=== PATIENT | male | born 1930 | race Caucasian/White ===

== ENCOUNTER → 2016-11-12 | Outpatient (CLI) | payer OTHER, MEDICARE ==
[~2016-11-12] MED LIST: ACCUNEB SO1.25 MG/1; ALLER-EASE180 MG PO; ANTARA30 MG PO; ASPIR 8181 MG PO; CARDURA XL4 MG PO; COUMADIN 1MG TAB1 M1 PO; FLECAINIDE ACE100 MG PO; FLONASE 0.05%50 MCG NASAL; HYDROCHLOROTHIA25 M2 PO; IMIPRAMINE HCL25 MG PO; LIVALO2 MG PO; PLAVIX 75 MG TA75 M1 PO; PROSCAR 5MG TABL5 MG PO; QNASL8.7 GM NASAL; TESTIM5 GM TOP; TOPROL XL50 MG PO; VESICARE 5 MG TA5 MG PO
== END ==
LOC: RAD 11:03
DX: R06.00 Dyspnea, unspecified (principal)

== ENCOUNTER 2017-05-27 15:33 | Emergency (ER) | payer OTHER, MEDICARE ==
[~2017-05-27] VITALS: Ht 182.9 cm; Wt 95.3 kg
[2017-05-27 16:42] LABS: HEMATOCRIT 37.7 % (42.0-52.0); HEMOGLOBIN 13.1 gm/dL (14.0-18.0); MCH 32.9 pg (26.0-34.0); MCHC 34.7 g/dL (28.0-37.0); MCV 94.9 fL (80.0-100.0); PLATELET COUNT 237 thou/uL (150-400); RBC 3.97 mil/uL (4.50-6.00); RDW 13.8 % (10.5-14.5); WBC 12.1 thou/uL (4.0-11.0)
[2017-05-27 16:55] LABS: CALCIUM 8.9 mg/dL (8.5-10.1); CREATININE 1.3 mg/dL (0.7-1.3); POTASSIUM 4.2 mmol/L (3.5-5.1)
[2017-05-27 17:04] LABS: ABSOLUTE NEUTROPHILS 8.7 thou/uL (1.4-8.2)
[2017-05-27 17:22] LABS: URINE BILIRUBIN NEGATIVE (Negative); URINE BLOOD 1+ (Negative); URINE CLARITY CLEAR; URINE COLOR YELLOW; URINE GLUCOSE-RANDOM* NEGATIVE (Negative); URINE KETONES NEGATIVE (Negative); URINE LEUKOCYTES 1+ (Negative); URINE NITRITE NEGATIVE (Negative); URINE PROTEIN (DIPSTICK) NEGATIVE (Negative); URINE UROBILINOGEN 0.2 E.U./dl (0.2-1.0)
[2017-05-27 17:25] LABS: BACTERIA 1-9 Few /HPF (None Seen); CASTS None Seen /LPF (None Seen); SQUAMOUS None Seen /LPF (0-3); URINE RBC 3-10 Few /HPF (0-2); URINE WBC 6-15 Few /HPF (0-5)
[2017-05-27 17:26] LABS: CRYSTALS None Seen /LPF (None Seen)
[2017-05-27 17:52] VITALS: BP 136/74
[2017-05-27] MEDS ORDERED: ULTRAM 50MG TAB50 MG PO (18:12)
[2017-08-09] MEDS ORDERED: DEMADEX20 MG PO (14:24)
[2017-08-09] MEDS ORDERED: K-DUR 20 MEQ T20 MEQ PO (14:29)
[2017-08-09] MEDS ORDERED: IMIPRAMINE HCL25 MG PO (14:29)
[2017-08-09] MEDS ORDERED: MYRBETRIQ50 MG PO (14:30)
== END 2017-05-27 18:33 | disposition home or self-care (01) ==
LOC: ER 15:33
PROVIDERS: Nurse Practitioner
DX: S22.089A Unspecified fracture of T11-T12 vertebra, initial encounter for closed fracture (principal); I10 Essential (primary) hypertension; I48.91 Unspecified atrial fibrillation; E78.5 Hyperlipidemia, unspecified; I25.10 Atherosclerotic heart disease of native coronary artery without angina pectoris; N40.0 Benign prostatic hyperplasia without lower urinary tract symptoms; Z88.0 Allergy status to penicillin; W19.XXXA Unspecified fall, initial encounter; Y93.89 Activity, other specified; Y92.89 Other specified places as the place of occurrence of the external cause; Y99.8 Other external cause status

== ENCOUNTER 2017-05-29 11:39 | Inpatient (IN) | payer OTHER, MEDICARE ==
[~2017-05-29] VITALS: Ht 182.9 cm; Wt 131.1 kg
--- NOTE | ~2017-05-29 | EKG ---
[address] [place] [address] ELECTROCARDIOGRAM REPORT Name: KRISSMIGUELITOBHARATHI Marilin Room #: 402-P ADM IN M.R.#: [id number] Admission: 05/29/17 Attend Phys: Bud Wong Discharge: Date of : 34 Report #: [id number] THIS REPORT FOR: //name// [facility] Test Date: 2017-05-29 Test Time: 22:51:45 Pat Name: BHARATHI MOON Department: Room: 402 P Gender: M Salvationist: willard roy rn : 1930 Requested By: Rae Montes Order Number: [id number] MD: Alfonso Christianson Measurements Intervals [address] Rate: 70 P: -13 VT: 234 QRS: -13 QRSD: 103 T: 16 QT: 432 QTc: 467 Interpretive Statements Sinus rhythm Prolonged VT interval Compared to ECG 02/25/2014 15:26:06 First degree AV block now present Electronically Signed On 05-30-2017 10:12:43 RADIO TESTER by Alfonso Christianson [email or web address] <ELECTRONICALLY SIGNED> By: Alfonso Christianson MD 05/30/17 1012 D: [id number] Alfonso Christianson MD /PAPA
--- NOTE | ~2017-05-29 | 2DMMODE ---
[facility] [address] [place] [address] 2 D/M-MODE ECHOCARDIOGRAM Name: BHARATHI MOON Room #: 402-P ADM IN M.R.#: [id number] Admission: 05/29/17 Attend Phys: Bud Garland Discharge: Date of : 34 Date of Service: 05/31/17 1700 Report #: [id number] THIS REPORT FOR: //name// APPROVED REPORT Study performed: 05/31/2017 14:48:03 EXAM: Comprehensive 2D, Doppler, and color-flow Echocardiogram Patient Location: Bedside Room #: 402 Status: routine BSA: 2.45 HR: 75 bpm BP: 160/64 mmHg Rhythm: NSR Other Information Study Quality: Adequate/technically difficult due to obesity and heavy breathing Indications Edema. Hx: CAD, HTN, Afib 2D Dimensions RVDd: 33.33 mm LVEF(%): 65.45 (>50%) IVSd: 11.74 (7-11mm) LVOT Diam: 23.61 (18-24mm) LVDd: 52.57 mm PWd: 11.50 (7-11mm) Ascending Ao: 40.71 (22-36mm) LVDs: 33.53 (25-40mm) Aortic Root: 40.46 mm Sue's LVEF: 65.45 % Volumes Left Atrial Volume (Systole) Single Plane 4CH: 99.15 mL Single Plane 2CH: 99.47 mL LA ESV Index: 43.00 mL/m2 Aortic Valve AoV Peak Jakub.: 3.04 m/s AO Peak Gr.: 36.89 mmHg LVOT Max P.24 mmHg AO Mean Gr.: 19.68 mmHg AO V2 Mean: 2.10 m/s LVOT Max V: 1.52 m/s AO V2 VTI: 56.60 cm REJI Vmax: 2.19 cm2 AI Vmax: 5.06 m/s [facility] [employer] [place] [address] 2 D/M-MODE ECHOCARDIOGRAM Name: KRISSMIGUELITOBHARATHI Marilin Room #: 402-P [facility] IN ..#: [id number] Admission: 05/29/17 Attend Phys: Bud Garland Discharge: Date of : 34 Date of Service: 05/31/17 1700 Report #: [id number] AI Stewart: 3.16 m/s2 AI PHT: 464.62 ms Mitral Valve E/A Ratio: 0.8 MV Decel. Time: 291.23 ms MV E Max Jakub.: 0.76 m/s MV A Jakub.: 0.93 m/s MV PHT: 84.46 ms IVRT: 79.58 ms Pulmonary Valve PV Peak Jakub.: 1.61 m/s PV Peak Gr.: 10.42 mmHg Tricuspid Valve RAP Estimate: 5.00 mmHg Left Ventricle The left ventricle is normal size. There is normal LV segmental wall motion. Mild concentric left ventricular hypertrophy. Left ventricular systolic function is normal. LVEF is 60-65%%. Mild diastolic dysfunction is present (impaired relaxation pattern). Right Ventricle The right ventricle is normal size. Right ventricle appears mildly hypokinetic. Atria Left atrium is dilated. The right atrium size is normal. Aortic Valve Aortic valve is calcified, trileaflet. Moderate aortic regurgitation. Mild aortic stenosis. Calculated aortic valve area is 1.2 cm2 with maximum pressure gradient of 36 mmHg and mean pressure gradient of 19 mmHg. Mitral Valve The mitral valve is normal in structure. Trace mitral regurgitation. Tricuspid Valve The tricuspid valve is normal in structure. There is no tricuspid valve regurgitation noted. Unable to assess PA pressure. Pulmonic Valve [facility] [address] [place] [address] 2 D/M-MODE ECHOCARDIOGRAM Name: BHARATHI MOON Room #: 402-P [facility] IN [facility]#: [id number] Admission: 05/29/17 Attend Phys: Bud Garland Discharge: Date of : 32 Date of Service: 05/31/17 1700 Report #: [id number] The pulmonary valve is normal in structure. Mild pulmonic regurgitation. 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 Ascending aorta is dilated at 4.1cm. IVC is normal in size and collapses >50% with inspiration. Pericardium There is no pericardial effusion. <Conclusion> Left ventricular systolic function is normal. LVEF 60-65%%. Normal LV segmental wall motion. Mild diastolic dysfunction Left atrium is dilated. Aortic valve is calcified, trileaflet. Mild aortic stenosis. Moderate aortic regurgitation. Calculated aortic valve area is 1.2 cm2 with maximum pressure gradient of 36 mmHg and mean pressure gradient of 19 mmHg. The mitral valve is normal in structure. Trace mitral regurgitation. There is no pericardial effusion. <ELECTRONICALLY SIGNED> By: Heri Carter MD, FACC 05/31/171699 99 99 Heri Carter MD, FACC /INF
--- NOTE | ~2017-05-29 | HC ---
[facility] [place] [address] CONSULTATION Name: BHARATHI MOON Room #: 402-P ADM IN M.R.#: [id number] Admission: 05/29/17 Attend Phys: Bud Wong Discharge: Date of : 32 Report #: [id number] THIS REPORT FOR: //name// CC: Alfredo Wong DATE OF SERVICE: 05/29/2017 ATTENDING PHYSICIAN: Dr. Wong. REASON FOR CONSULTATION: Complicated urinary tract infection and probable pneumonitis. HISTORY OF PRESENT ILLNESS: Chart reviewed, the patient examined. This is an 87-year-old male with history of obstructive sleep apnea, known coronary artery disease who had abrupt onset of severe back pain, hip pain, radiated actually proximally, had persisted in spite of his various attempts to mitigate it with heat, hot showers, etc. He was evaluated and was found to have a T12 compression fracture and he was subsequently admitted. He was felt to be having some difficulty urinating. Urinalysis did show some moderate pyuria. Urine culture now with growth of Pseudomonas. In addition to that, chest x-ray shows patchy infiltrates and he is requiring supplemental oxygen. Despite that he has some increased respiratory rate, suggests some dyspnea as well. He is febrile. He is not encephalopathic. ALLERGIES: LISTED TO PENICILLINS. MEDICATIONS: Include metformin, glipizide, amiodarone, metoprolol, diltiazem, levofloxacin, rivaroxaban, hydrocodone, zolpidem, ondansetron. PAST MEDICAL HISTORY: As described above, history of hypertension, benign prostatic hypertrophy, hyperlipidemia, atrial fibrillation. SOCIAL HISTORY: Former smoker. No ethanol. FAMILY HISTORY: Noncontributory. REVIEW OF SYSTEMS: As above. PHYSICAL EXAMINATION: GENERAL: He is moderately uncomfortable, some respiratory distress. He has got nasal cannula oxygen in place. He is anxious. VITAL SIGNS: Temperature 98.4, pulse 80, respirations 23, blood pressure 148/57. SKIN: Warm, dry, no rashes. [facility] [address] [place] [address] CONSULTATION Name: BHARATHI MOON Room #: 402-P [facility] IN M.R.#: [id number] Admission: 05/29/17 Attend Phys: Bud Wong Discharge: Date of : 32 Report #: [id number] HEENT: Otherwise, unremarkable. NECK: Supple. LUNGS: Diminished breath sounds. Few scattered crackles. HEART: Does have a systolic murmur. ABDOMEN: Soft, obese, nontender. There are no peritoneal signs. I do not appreciate any flank tenderness. GENITOURINARY: Deferred. RECTAL: Deferred. LABORATORY DATA: CT abdomen and pelvis show moderate distention of the colon with stool felt to represent constipation, diverticulosis, possible early diverticulitis, retroperitoneal adenopathy, multiple gallstones. Chest x-ray: Mild bilateral interstitial opacities. Influenza antigen was not detected for A or B. BNP 733. Electrolytes: Sodium 138, potassium 4.3, chloride 96, bicarbonate 24, BUN and creatinine 30 and 1.2, total bilirubin of 1.5, total protein of 8.2, albumin 3.5, estimated GFR 58. CBC: White count of 12.4, H and H 13.4 and 39.1, platelets of 240. Urine culture described above, pseudomonas. CT L-spine showed compression fracture T12. ASSESSMENT AND PLAN: Complicated urinary tract infection as well as probable pneumonitis. Levofloxacin is reasonable, should give us perhaps pseudomonas coverage in the event that it is quinolone resistant. We will add a single dose of gentamicin, wait for results. He is in quite a bit of distress at this point. Symptomatic treatment. We will repeat labs in the morning. We will have to monitor expectantly. I think he is at risk for further nosocomial related complications. <ELECTRONICALLY SIGNED> By: Darnell Hall MD 05/30/17 0411 1811 1827 Darnell Hall MD /nt
--- NOTE | ~2017-05-29 | HC ---
[facility] [place] [address] CONSULTATION Name: HBARATHI MOON Room #: 402-P [facility] IN M.R.#: [id number] Admission: 05/29/17 Attend Phys: Bud Wong Discharge: 06/02/17 Date of : 32 Report #: [id number] THIS REPORT FOR: //name// CC: Alfredo Wong DATE OF SERVICE: 06/01/2017 HISTORY OF PRESENT ILLNESS: The patient is an 87-year-old white male admitted with severe back pain, lower extremity swelling, and decreased urination. He was diagnosed with a T12 compression fracture with CT scan, age indeterminate. His symptoms regarding the severe low back pain have improved. He was noted to have moderate pyuria, diagnosed with a complicated urinary tract infection. He also has pneumonia. Infectious Disease is closely involved and he has been on IV antibiotics. He has BPH without hydronephrosis, was started on Flomax with plans for a voiding trial in the next few days with Urology involved. He has been on 4 liters nasal cannula, which is all new for him. He has also had a noted delirium/metabolic encephalopathy with plan to avoid psychotropics and p.r.n. Ambien. He also has had some hyponatremia. We are seeing him now in rehabilitation medicine consultation. PAST MEDICAL HISTORY: Includes hypertension; atrial fibrillation; sleep apnea, on CPAP; BPH; hyperlipidemia; coronary artery disease. HABITS: Former tobacco abuse, quit greater than a year ago. No history of alcohol abuse. ALLERGIES: PENICILLIN. SOCIAL HISTORY: Lives in a house with his , one step, 10 inside, this is a ranch-style house. He did not utilize gait aids premorbidly. He was not on O2. He has several daughters that are involved. REVIEW OF SYSTEMS: No current complaints of chest pain, abdominal discomfort, or shortness of breath except with increased activity. He notes that severe low back pain is improved. He has concerns regarding his voiding. No extremity pain complaints with his distal upper or lower extremities. He does complain of generalized weakness. PHYSICAL EXAMINATION: GENERAL: An 87-year-old white male, no obvious distress. He is mildly hard of hearing. VITAL SIGNS: Temperature is 98.9, pulse 72, respirations 18, and blood pressure 138/68. He is on 4 liters nasal cannula. NEUROLOGIC: He is an overweight white gentleman. He does have a delay in his [address] [address] CONSULTATION Name: BHARATHI MOON Room #: 402-P [facility] IN M.R.#: [id number] Admission: 05/29/17 Attend Phys: Bud Wong Discharge: 06/02/17 Date of : 32 Report #: [id number] responses. Tends to defer answers to his daughter. Needed repetition with decreased attention. Facies are symmetric. Functional range of motion of both upper extremities. Strength is grade 3+ to 4-/5. DTRs are trace to 1. Lower extremities, 1+ distal lower extremity edema. No focal calf swelling. Functional range of motion with strength of grade 3+ to 4-/5. DTRs are trace to 1. He was a max assist with bed to chair and gait was max assist 30 feet front-wheeled walker. ASSESSMENT: An 87-year-old white male with the following problem list: 1. Delirium/multifactorial encephalopathy. 2. T12 compression fracture of undetermined duration with symptoms improving. 3. Pneumonia. 4. Complicated urinary tract infection. 5. Benign prostatic hypertrophy without hydronephrosis, on Flomax with Urology involved. 6. Coronary artery disease, status post drug-eluting stent and right carotid endarterectomy. 7. History of aortic stenosis. 8. Atrial fibrillation. 9. Hypertension. PLAN: Pulmonary is currently involved as well as Urology, Infectious Disease, and Internal Medicine. He does have the cognitive deficits that appear to be improving and has medical complexity with generalized debilitation. It would be my impression that he would be a good acute in-hospital inpatient rehabilitation candidate as he further medically stabilizes. At this point, we will continue to follow along with you regarding his rehab therapy needs. Discussion was held with the patient's daughter. <ELECTRONICALLY SIGNED> By: Manuel Thomas MD 06/29/17 1030 1209 07 Manuel Thomas MD /nt
--- NOTE | ~2017-05-29 | EKG ---
[address] [place] [address] ELECTROCARDIOGRAM REPORT Name: BHARATHI MOON Room #: 402-P ADM IN M.R.#: [id number] Admission: 05/29/17 Attend Phys: Bud Wong Discharge: Date of : 32 Report #: [id number] THIS REPORT FOR: //name// [facility] ED Test Date: 2017-05-29 Test Time: 12:25:51 Pat Name: BHARATHI MOON Department: Room: 402 Gender: M Cook Roast: Alma GOFF : 1930 Requested By: Daniele Corea Order Number: [id number] MD: Alfonso Christianson Measurements Intervals [place] Rate: 71 P: -22 WV: 242 QRS: -25 QRSD: 101 T: 0 QT: 415 QTc: 451 Interpretive Statements Sinus rhythm Prolonged WV interval Low voltage, precordial leads Abnormal R-wave progression, late transition Left ventricular hypertrophy Borderline T abnormalities, inferior leads Compared to ECG 02/25/2014 15:26:06 First degree AV block now present Low QRS voltage now present T-wave abnormality now present Atrial fibrillation no longer present Electronically Signed On 05-30-2017 10:08:26 WHEEL WORKER by Alfonso Christianson [email or web address] <ELECTRONICALLY SIGNED> By: Alfonso Christianson MD 05/30/17 1008 1225 1225 Alfonso Christianson MD /EPI
[~2017-05-29 11:39] MED LIST changes: +ULTRAM 50MG TAB50 MG PO
[2017-05-29 11:40] VITALS: BP 151/65
[2017-05-29 12:25] LABS: HEMATOCRIT 39.1 % (42.0-52.0); HEMOGLOBIN 13.4 gm/dL (14.0-18.0); MCH 32.6 pg (26.0-34.0); MCHC 34.3 g/dL (28.0-37.0); RBC 4.12 mil/uL (4.50-6.00); RDW 13.7 % (10.5-14.5); WBC 12.4 thou/uL (4.0-11.0)
[2017-05-29 12:33] LABS: ANION GAP 10 mmol/L (7-16); BUN 30 mg/dL (7-18); CALCIUM 8.9 mg/dL (8.5-10.1); CHLORIDE 96 mmol/L (98-107); CO2 24 mmol/L (21-32); CREATININE 1.2 mg/dL (0.7-1.3); GLUCOSE 116 mg/dL (74-106); POTASSIUM 4.3 mmol/L (3.5-5.1); SODIUM 130 mmol/L (136-145)
[2017-05-29] MEDS ORDERED: BENICAR40 MG PO (12:37)
[2017-05-29] MEDS ORDERED: HYDRALAZINE 10M10 MG PO (12:38)
[2017-05-29] MEDS ORDERED: METFORMIN HCL500 MG PO (12:38)
[2017-05-29] MEDS ORDERED: LASIX 20 MG TAB20 MG PO (12:39)
[2017-05-29 12:40] LABS: ALBUMIN 3.5 g/dL (3.4-5.0); SGOT 25 U/L (15-37); SGPT 14 U/L (30-65); TOTAL BILIRUBIN 1.5 mg/dL (<0.1-1.0); TOTAL PROTEIN 8.2 g/dL (6.4-8.2); TROPONIN-I < 0.04 ng/mL (<0.06)
[2017-05-29] MEDS ORDERED: DILTIAZEM 24HR360 M1 PO (12:41)
[2017-05-29] MEDS ORDERED: LIPITOR20 MG PO (13:07)
[2017-05-29] MEDS ORDERED: PACERONE 200 M200 M1 PO (13:08)
[2017-05-29] MEDS ORDERED: AMLODIPINE BESY10 MG PO (13:08)
[2017-05-29] MEDS ORDERED: XARELTO20 MG PO (13:09)
[2017-05-29] MEDS ORDERED: GLUCOTROL5 MG PO (13:10)
[2017-05-29] MEDS ORDERED: CRESTOR5 MG PO (13:11)
[2017-05-29] MEDS ORDERED: MUCINEX600 MG PO (13:12)
[2017-05-29] MEDS ORDERED: CRANBERRY500 MG PO (13:12)
[2017-05-29] MEDS ORDERED: TYLENOL EXTRA500 MG PO (13:13)
[2017-05-29] MEDS ORDERED: LOPRESSOR25 PO (13:17)
[2017-05-29] MEDS ORDERED: APAP650 PO (13:17)
[2017-05-29] MEDS ORDERED: KEFLEX500 M2 PO (13:19)
[2017-05-29] MEDS ORDERED: SINGULAIR 10 MG10 M1 PO (13:20)
[2017-05-29 16:10] VITALS: BP 147/65
[2017-05-29 16:23] VITALS: BP 148/57
[2017-05-29 19:23] VITALS: BP 140/74
[2017-05-29 23:45] VITALS: BP 146/65
[2017-05-30 04:12] VITALS: BP 124/63
[2017-05-30 09:08] VITALS: BP 143/71
[2017-05-30 09:21] LABS: ABSOLUTE NEUTROPHILS 11.9 thou/uL (1.4-8.2); BASOPHILS 0.4 % (0.0-2.0); HEMATOCRIT 37.2 % (42.0-52.0); HEMOGLOBIN 12.8 gm/dL (14.0-18.0); LYMPHOCYTES 7.1 % (24.0-44.0); MCH 33.1 pg (26.0-34.0); MCHC 34.5 g/dL (28.0-37.0); MCV 95.9 fL (80.0-100.0); MONOCYTES 8.8 % (1.0-8.0); PLATELET COUNT 259 thou/uL (150-400); POLYS 83.7 % (36.0-66.0); RBC 3.88 mil/uL (4.50-6.00); RDW 13.8 % (10.5-14.5); WBC 14.2 thou/uL (4.0-11.0)
[2017-05-30 09:32] LABS: CALCIUM 8.5 mg/dL (8.5-10.1); CREATININE 1.2 mg/dL (0.7-1.3); POTASSIUM 4.3 mmol/L (3.5-5.1)
[2017-05-30 13:06] LABS: URINE BILIRUBIN 1+ (Negative); URINE BLOOD 3+ (Negative); URINE CLARITY CLOUDY; URINE COLOR YELLOW; URINE GLUCOSE-RANDOM* NEGATIVE (Negative); URINE KETONES TRACE (Negative); URINE LEUKOCYTES-REFLEX TRACE (Negative); URINE NITRITE-REFLEX NEGATIVE (Negative); URINE PROTEIN (DIPSTICK) 2+ (Negative); URINE SPECIFIC GRAVITY 1.025 (1.005-1.035); URINE UROBILINOGEN 0.2 E.U./dl (0.2-1.0)
[2017-05-30 13:14] LABS: ICTOTEST (BILI CONFIRMATORY) Negative (Negative)
[2017-05-30 13:15] LABS: BACTERIA-REFLEX 1-9 Few /HPF (None Seen); CRYSTALS None Seen /LPF (None Seen); HYALINE CASTS 0-3 Few /LPF (None Seen); SQUAMOUS 0-3 Few /LPF (0-3); URINE RBC >20 Many /HPF (0-2); URINE WBC-REFLEX 6-15 Few /HPF (0-5)
[2017-05-30 20:33] VITALS: BP 143/76
[2017-05-31 04:42] LABS: ALBUMIN 2.6 g/dL (3.4-5.0); CALCIUM 7.9 mg/dL (8.5-10.1); PHOSPHORUS 2.8 mg/dL (2.5-4.9); POTASSIUM 3.8 mmol/L (3.5-5.1)
[2017-05-31 05:08] LABS: HEMATOCRIT 35.8 % (42.0-52.0); HEMOGLOBIN 12.2 gm/dL (14.0-18.0); MCH 32.7 pg (26.0-34.0); MCHC 34.2 g/dL (28.0-37.0); MCV 95.6 fL (80.0-100.0); RBC 3.74 mil/uL (4.50-6.00); RDW 13.8 % (10.5-14.5); WBC 14.2 thou/uL (4.0-11.0)
[2017-05-31 05:09] VITALS: BP 162/73
[2017-05-31 05:11] LABS: TSH 1.815 uIU/mL (0.358-3.740)
[2017-05-31 07:13] VITALS: BP 160/64
[2017-05-31 12:48] LABS: BE(vivo) 0.7 mmol/L (-2 to +3); HCO3 23.3 mmol/L (22.0-26.0); PCO2 31.1 mmHg (35.0-45.0); PO2 53.6 mmHg (80.0-100.0); pH 7.492 (7.360-7.450); sO2 90.7 % (92.0-98.0)
[2017-05-31 16:02] VITALS: BP 156/77
[2017-05-31 20:00] VITALS: BP 144/73
[2017-06-01] VITALS: BP 155/71
[2017-06-01 04:00] VITALS: BP 153/85
[2017-06-01 05:31] LABS: HEMATOCRIT 34.4 % (42.0-52.0); HEMOGLOBIN 11.8 gm/dL (14.0-18.0); MCHC 34.3 g/dL (28.0-37.0); MCV 93.3 fL (80.0-100.0); RBC 3.69 mil/uL (4.50-6.00); RDW 13.3 % (10.5-14.5); WBC 12.7 thou/uL (4.0-11.0)
[2017-06-01 05:48] LABS: ALBUMIN 2.5 g/dL (3.4-5.0); CALCIUM 7.7 mg/dL (8.5-10.1); PHOSPHORUS 2.7 mg/dL (2.5-4.9); POTASSIUM 3.8 mmol/L (3.5-5.1)
[2017-06-01 08:11] VITALS: BP 138/68
[2017-06-01 15:25] VITALS: BP 147/67
[2017-06-01 20:00] VITALS: BP 130/73; BP 97/63
[2017-06-02 04:00] VITALS: BP 121/73; BP 153/82
[2017-06-02 06:18] LABS: HEMATOCRIT 34.3 % (42.0-52.0); MCH 32.9 pg (26.0-34.0); MCV 93.9 fL (80.0-100.0); RBC 3.65 mil/uL (4.50-6.00); RDW 13.6 % (10.5-14.5)
[2017-06-02 06:25] LABS: ALBUMIN 2.6 g/dL (3.4-5.0); CALCIUM 8.1 mg/dL (8.5-10.1); CREATININE 1.2 mg/dL (0.7-1.3); PHOSPHORUS 3.4 mg/dL (2.5-4.9)
[2017-06-02 07:14] VITALS: BP 110/82
[2017-06-02 09:21] VITALS: BP 110/82
[2017-06-02] MEDS ORDERED: DUONEB 2.5-0.5 M3 ML INH (10:29)
[2017-06-02] MEDS ORDERED: XARELTO20 MG PO (10:29)
[2017-06-02] MEDS ORDERED: FLOMAX0.4 MG PO (10:29)
[2017-06-02] MEDS ORDERED: OSELB75 PO (10:29)
[2017-06-02] MEDS ORDERED: LEVAQUIN 500 M500 M1 PO (10:29)
[2017-06-02] MEDS ORDERED: HYDRALAZINE 10M10 MG PO (10:30)
[2017-06-02] MEDS ORDERED: LIPITOR 20 MG T20 M1 PO (10:30)
[2017-06-02] MEDS ORDERED: CARDURA4 MG PO (10:30)
[2017-06-02] MEDS ORDERED: TRAMADOL 50 MG50 MG PO (10:30)
[2017-06-02] MEDS ORDERED: SINGULAIR 10 MG10 M1 PO (10:31)
[2017-06-02] MEDS ORDERED: SENNA-TIME S T1 EACH PO (10:31)
[2017-06-02] MEDS ORDERED: FINASTERIDE5 MG PO (10:31)
[2017-06-02] MEDS ORDERED: AMBIEN 5 MG TABL5 M1 PO (10:31)
[2017-06-02] MEDS ORDERED: AMITRIPTYLINE H10 M1 PO (10:31)
[2017-06-03 00:06] LABS: ADENOVIRUS Negative (Negative); INFLUENZA A Negative (Negative); INFLUENZA B Negative (Negative); METAPNEUMOVIRUS Negative (Negative); PARAINFLUENZA 1 Negative (Negative); PARAINFLUENZA 2 Negative (Negative); PARAINFLUENZA 3 Negative (Negative); RHINOVIRUS Negative (Negative); RSV A Negative (Negative); RSV B Negative (Negative)
[2017-08-09] MEDS ORDERED: DEMADEX20 MG PO (14:24)
[2017-08-09] MEDS ORDERED: IMIPRAMINE HCL25 MG PO (14:29)
[2017-08-09] MEDS ORDERED: K-DUR 20 MEQ T20 MEQ PO (14:29)
[2017-08-09] MEDS ORDERED: MYRBETRIQ50 MG PO (14:30)
== END 2017-06-02 13:19 | DRG 177 ==
LOC: ER 11:39 → EROBS 15:53 → 4N 15:53
PROVIDERS: Emergency Medicine; Hospitalist; Specialist
DX: J15.6 Pneumonia due to other Gram-negative bacteria (principal); G93.40 Encephalopathy, unspecified; E43 Unspecified severe protein-calorie malnutrition; N39.0 Urinary tract infection, site not specified; E87.1 Hypo-osmolality and hyponatremia; M48.54XA Collapsed vertebra, not elsewhere classified, thoracic region, initial encounter for fracture; J98.11 Atelectasis; K57.92 Diverticulitis of intestine, part unspecified, without perforation or abscess without bleeding; I10 Essential (primary) hypertension; N40.0 Benign prostatic hyperplasia without lower urinary tract symptoms; E78.5 Hyperlipidemia, unspecified; I25.10 Atherosclerotic heart disease of native coronary artery without angina pectoris; K59.00 Constipation, unspecified; K52.9 Noninfective gastroenteritis and colitis, unspecified; I71.4 Abdominal aortic aneurysm, without rupture; B34.9 Viral infection, unspecified; F03.90 Unspecified dementia, unspecified severity, without behavioral disturbance, psychotic disturbance, mood disturbance, and anxiety; E78.00 Pure hypercholesterolemia, unspecified; I48.0 Paroxysmal atrial fibrillation; I35.0 Nonrheumatic aortic (valve) stenosis; B96.5 Pseudomonas (aeruginosa) (mallei) (pseudomallei) as the cause of diseases classified elsewhere; Z79.899 Other long term (current) drug therapy; Z88.0 Allergy status to penicillin; Z87.891 Personal history of nicotine dependence; Z79.82 Long term (current) use of aspirin; Z95.5 Presence of coronary angioplasty implant and graft; Z91.14 Patient's other noncompliance with medication regimen
CPT/HCPCS: 10091

== ENCOUNTER 2017-06-02 12:18 | Inpatient (IN) | payer OTHER, MEDICARE ==
[~2017-06-02] VITALS: Ht 182.9 cm; Wt 117.5 kg
--- NOTE | ~2017-06-02 | HC ---
[facility] [place] [address] CONSULTATION Name: BHARATHI MOON Room #: 515-P [facility] IN M.R.#: [id number] Admission: 06/02/17 Attend Phys: Manuel Thomas MD Discharge: Date of : 32 Report #: [id number] THIS REPORT FOR: //name// CC: Manuel Leon DATE OF SERVICE: 06/05/2017 NEUROBEHAVIORAL STATUS EXAM. ATTENDING PHYSICIAN: Manuel Thomas MD. BUSINESS INTELLIGENCE CONSULTANT: Osbaldo Prajapati, PhD. CLINICAL PRESENTATION: The patient is an 87-year-old male admitted to the [facility] rehabilitation unit for a comprehensive inpatient rehabilitation program to improve functional mobility and activities of daily living and self-care secondary to deficits from a multifactorial encephalopathy and delirium. His diagnoses include T12 compression fracture of undetermined duration, pneumonia, complicated urinary tract infection, benign prostatic hypertrophy without hydronephrosis, coronary artery disease status post drug-eluting stent and right carotid endarterectomy, history of aortic stenosis, atrial fibrillation and hypertension. The patient is reported to have been initially admitted to the hospital with severe back pain, lower extremity swelling and decreased urination. At that time, he was diagnosed with a T12 compression fracture per CT scan, age indeterminate. Prior to this admission, he was living at home with his . He has 8 children. The patient is a high school graduate. He was employed for [employer] prior to his penitentiary. He does not report a prior history of treatment for mood or behavior disorder. TECHNIQUES UTILIZED: Clinical interview, review of medical records, staff consultation and behavioral observation, mini mental state exam 2 standard version, category fluency assessment and brief abstract reasoning test and clock drawing. EXAMINATION FINDINGS: The patient was alert and cooperative with the assessment. He was unable to accurately describe the reason for his hospitalization. There is no evidence of aphasia. He does not report auditory or visual hallucinations. There is no evidence for thought disorder. He describes his symptoms to include anxiety, tiredness and fatigue and having reduced memory. Appetite is also reported as poor. His performance on the MMSE 2 brief version is mildly impaired with a raw score of 13 of16, which is a T score 38 and percentile rank of 12. He was 1 of [address] [address] CONSULTATION Name: BHARATHI MOON Room #: 515-P [facility] IN [facility].#: [id number] Admission: 06/02/17 Attend Phys: Manuel Thomas MD Discharge: Date of : 32 Report #: [id number] serial 7's. He was 1 of 3 for immediate recall of 3 items after a brief time delay and distraction. Performance on the MMSE 2 standard version deteriorated to a raw score 22, which is a T score at 32 and percentile rank of 4. He was 2 of 5 for serial 7s, 0 of 1 for being able to read and copy simple geometric design and 0 of 1 for the ability to copy a simple design, suggesting apraxia. His performance in category fluency is within normal limits with a raw score of 16. The patient was 2 of 8 on a brief abstract reasoning test suggesting impairment. The patient was also unable to draw a clock and set the hands at a designated time. 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 Unspecified anxiety disorder. RECOMMENDATIONS: The patient will require 24-hour care that includes assistance in the management of medication, nutrition and finances upon discharge. Driving should be evaluated for safety. A followup assessment to evaluate competency of driving is indicated. Follow up neuropsychological testing may be of benefit to clarify neurocognitive functioning. Thank you very much for allowing me to provide the consultation on this patient. <ELECTRONICALLY SIGNED> By: Osbaldo Prajapati, PhD 06/06/17 1359 1405 13 Osbaldo Prajapati, PhD /nt
--- NOTE | ~2017-06-02 | H ---
[facility] [place] [address] HISTORY AND PHYSICAL Name: BHARATHI MOON Room #: 515-P ADM IN M.R.#: [id number] Admission: 06/02/17 Attend Phys: Manuel Thomas MD Discharge: Date of : 32 Report #: [id number] THIS REPORT FOR: //name// CC: Manuel Leon DATE OF SERVICE: 06/02/2017 HISTORY AND PHYSICAL/POST-ADMISSION PHYSICIAN EVALUATION HISTORY OF PRESENT ILLNESS: This is an 87-year-old white male originally admitted to [facility] with severe back pain, lower extremity swelling, decreased urination. He was diagnosed with a T12 compression fracture per CT scan, age indeterminate. His symptoms regarding the severe low back pain have significantly improved. He was noted to have moderate pyuria and diagnosed with a complicated urinary tract infection. He also has pneumonia. Infectious Disease has been involved and he has been on IV antibiotics. He has BPH without hydronephrosis, was started on Flomax with plans for a voiding trial with Urology involved. He has been on 4 liters nasal cannula. He was noted to have delirium and metabolic encephalopathy with plan to avoid psychotropics and p.r.n. Ambien. He also has had some hyponatremia. He was noted to have a significant decline from his premorbid status and he has now been admitted for acute in-hospital inpatient rehabilitation. PAST MEDICAL HISTORY: Includes hypertension, atrial fibrillation, sleep apnea on CPAP, BPH, hyperlipidemia, coronary artery disease. HABITS: Former tobacco abuse, quit greater than a year ago. No history of alcohol abuse. ALLERGIES: PENICILLIN. SOCIAL HISTORY: Lives in a house with his , one step in, 10 inside. This is a ranch style house. He did not utilize gait aids premorbidly. He was not on O2. He has a number of children that are involved. REVIEW OF SYSTEMS: No current complaints of chest pain, abdominal discomfort. No shortness of breath except with increased activity. His severe low back pain has improved. He does have concern regarding his voiding. No focal extremity pain complaints at this time. PHYSICAL EXAMINATION: GENERAL: An 87-year-old white male who was seen earlier somewhat groggy, but pleasant, follows basic 1 step commands. VITAL SIGNS: Last recorded temperature 98.7, pulse 70, respirations 22, blood pressure 132/73. [facility] [address] [place] [address] HISTORY AND PHYSICAL Name: BHARATHI MOON Room #: 515-P [facility] IN M.R.#: [id number] Admission: 06/02/17 Attend Phys: Manuel Thomas MD Discharge: Date of : 32 Report #: [id number] HEENT: Facies appeared symmetric. CHEST: Diffuse decreased breath sounds. CARDIOVASCULAR: Regular rate and rhythm. ABDOMEN: Obese, bowel sounds positive, nontender. GENITOURINARY AND RECTAL: Deferred. He does have the Ball catheter in place as well as the nasal prong O2. NEUROLOGIC: He will follow basic 1 step commands, although there is a latency to his responses and he tends to defer to family. He has needed repetition with decreased attention. EXTREMITIES: He has functional range of motion of both upper extremities with strength grade 3+ to 4-/5. DTRs are trace to 1. Lower extremities, 1+ distal lower extremity edema. It may be closer to 2+. No focal calf swelling. Functional range of motion with strength grade 3+ to 4-/5. DTRs are trace to 1. He has been max assist with basic functional mobility and transfers. ASSESSMENT: 1. Multifactorial encephalopathy with delirium. 2. T12 compression fracture of undetermined duration with symptoms improved. 3. Pneumonia. 4. Complicated urinary tract infection. 5. Benign prostatic hypertrophy without hydronephrosis, he is on Flomax with Urology involved. 6. Coronary artery disease, status post drug-eluting stent and right carotid endarterectomy. 7. History of aortic stenosis. 8. Atrial fibrillation. 9. Hypertension. PLAN: The patient is admitted for acute in-hospital inpatient rehabilitation. From a postadmission physician evaluation perspective, there are no relevant changes since the preadmission screening. Please see the above review of prior and current medical and functional conditions and comorbidities. Please see the patient's previous and current functional status. As far as risk of complications, the patient does have multiple medical comorbidities as noted above. The initial plan of care involves the interdisciplinary acute inpatient rehabilitation program with the goal of maximizing his functional independence, so that he can hopefully return back to his prior living situation. Measurable functional goals would be for the patient to become modified independent with transfers, mobility, and ADLs and to improve as far as cognition, so that he can return back to the home setting. Prognosis is reasonably good with estimated length of stay probably at least 10 days to 2 weeks and likely longer. Potential barriers would include his multiple medical comorbidities and decreased functional status. The patient meets diagnostic criteria for an acute in-hospital inpatient rehabilitation stay. He meets medical necessity criteria and we will have the [facility] [address] [place] [address] HISTORY AND PHYSICAL Name: BHARATHI MOON Room #: 515-P ADM IN M.R.#: [id number] Admission: 06/02/17 Attend Phys: Manuel Thomas MD Discharge: Date of : 32 Report #: [id number] multiple tax credit leasing consultant physicians continue to follow while he is on the rehab steele. He does have the tolerance for therapies and has appropriate discharge goals back to the home setting. <ELECTRONICALLY SIGNED> By: Manuel Thomas MD 06/03/17 1424 0743 0821 Manuel Thomas MD /[facility]
--- NOTE | ~2017-06-02 | PLAN ---
[facility] [place] [address] REHAB UNIT PLAN OF CARE Name: BHARATHI MOON Room #: 515-P ADM IN M.R.#: [id number] Admission: 06/02/17 Attend Phys: Manuel Thomas MD Discharge: Date of : 34 Report #: [id number] THIS REPORT FOR: //name// CC: Manuel Leon DATE OF SERVICE: 06/04/2017 SUBJECTIVE: The patient is seen back today in followup. He is in no distress. Last recorded temperature 36.3, pulse 83, respirations 19, blood pressure 138/51. He is working in therapies. Transfers are max assist. Gait min assist 120 feet with a 4-wheeled walker. Lower body dressing is max assist. In speech therapy, he has mild to moderate comprehensive deficits. ASSESSMENT: 1. Multifactorial encephalopathy. 2. T12 compression fracture of undetermined duration with symptoms improved. 3. Pneumonia. 4. Complicated urinary tract infection. 5. Benign prostatic hypertrophy with hydronephrosis, on Flomax. 6. Coronary artery disease, status post drug-eluting stent and right carotid endarterectomy. 7. History of aortic stenosis. 8. Atrial fibrillation. 9. Hypertension. PLAN: 1. The overall plan of care is based on the preadmission screen, post-admission physician evaluation, and information garnered from therapy assessments. Ball catheter has been removed. Urology is involved with voiding trial underway. He is using tramadol for pain. 2. Estimated length of stay is probably fairly long with his lower functional level at least 10 days to 2 weeks. 3. Medical prognosis is reasonably good. 4. Anticipated interventions include the interdisciplinary acute inpatient rehabilitation program with PT and OT and speech, rehabilitation nursing assisting regarding medication management, skin care prophylaxis, bowel and bladder issues, and nursing education. He currently has mild to moderate comprehensive deficits. We will have the interdisciplinary acute inpatient rehabilitation team involved as well as the principal consultant physicians. 5. Anticipated functional outcomes would be for the patient to hopefully become modified independent with transfers, mobility and ADLs at least at the walker level with improvement in overall cognition as well. 6. Discharge destination would be back home where he lives with his in a house. 7. Expected therapy by discipline includes PT and OT and speech 1 [place] [address] REHAB UNIT PLAN OF CARE Name: BHARATHI MOON Room #: 515-P [facility]#: [id number] Admission: 06/02/17 Attend Phys: Manuel Thomas MD Discharge: Date of : 32 Report #: [id number] each, five days a week throughout the duration of the acute inpatient rehabilitation stay. <ELECTRONICALLY SIGNED> By: Manuel Thomas MD 06/08/17 [id number] Manuel Thomas MD /PMT
[~2017-06-02 12:18] MED LIST changes: +AMBIEN 5 MG TABL5 M1 PO; +AMITRIPTYLINE H10 M1 PO; +AMLODIPINE BESY10 MG PO; +APAP650 PO; +BENICAR40 MG PO; +CARDURA4 MG PO; +CRANBERRY500 MG PO; +CRESTOR5 MG PO; +DILTIAZEM 24HR360 M1 PO; +DUONEB 2.5-0.5 M3 ML INH; +FINASTERIDE5 MG PO; +FLOMAX0.4 MG PO; +GLUCOTROL5 MG PO; +HYDRALAZINE 10M10 MG PO; +KEFLEX500 M2 PO; +LASIX 20 MG TAB20 MG PO; +LEVAQUIN 500 M500 M1 PO; +LIPITOR 20 MG T20 M1 PO; +LIPITOR20 MG PO; +LOPRESSOR25 PO; +METFORMIN HCL500 MG PO; +MUCINEX600 MG PO; +OSELB75 PO; +PACERONE 200 M200 M1 PO; +SENNA-TIME S T1 EACH PO; +SINGULAIR 10 MG10 M1 PO; +TRAMADOL 50 MG50 MG PO; +TYLENOL EXTRA500 MG PO; +XARELTO20 MG PO
[2017-06-02 13:30] VITALS: BP 132/73
[2017-06-02 20:10] VITALS: BP 132/73
[2017-06-03 06:01] LABS: HEMATOCRIT 33.3 % (42.0-52.0); HEMOGLOBIN 11.8 gm/dL (14.0-18.0); MCH 33.3 pg (26.0-34.0); MCHC 35.5 g/dL (28.0-37.0); MCV 93.9 fL (80.0-100.0); RBC 3.55 mil/uL (4.50-6.00); RDW 13.2 % (10.5-14.5); WBC 11.5 thou/uL (4.0-11.0)
[2017-06-03 06:18] LABS: CALCIUM 8.1 mg/dL (8.5-10.1); CREATININE 1.1 mg/dL (0.7-1.3)
[2017-06-03 11:40] VITALS: BP 126/56
[2017-06-03 19:45] VITALS: BP 126/67
[2017-06-04 07:44] VITALS: BP 138/51
[2017-06-04 20:00] VITALS: BP 108/48
[2017-06-05 03:33] LABS: CREATININE 1.2 mg/dL (0.7-1.3)
[2017-06-05 08:50] VITALS: BP 111/62
[2017-06-05 21:37] VITALS: BP 128/63
[2017-06-06 09:45] VITALS: BP 136/58
[2017-06-06 21:59] VITALS: BP 145/75
[2017-06-07 08:00] VITALS: BP 133/57
[2017-06-07 20:00] VITALS: BP 120/61
[2017-06-08 06:05] LABS: ABSOLUTE NEUTROPHILS 7.2 thou/uL (1.4-8.2); BASOPHILS 1.3 % (0.0-2.0); EOSINOPHILS 4.7 % (0.0-3.0); HEMATOCRIT 33.8 % (42.0-52.0); HEMOGLOBIN 11.5 gm/dL (14.0-18.0); LYMPHOCYTES 16.8 % (24.0-44.0); MCH 32.4 pg (26.0-34.0); MCHC 34.2 g/dL (28.0-37.0); MCV 94.7 fL (80.0-100.0); MONOCYTES 11.6 % (1.0-8.0); PLATELET COUNT 361 thou/uL (150-400); POLYS 65.6 % (36.0-66.0); RBC 3.56 mil/uL (4.50-6.00); RDW 13.6 % (10.5-14.5); WBC 10.9 thou/uL (4.0-11.0)
[2017-06-08 06:15] LABS: CALCIUM 8.2 mg/dL (8.5-10.1); CREATININE 1.4 mg/dL (0.7-1.3); MAGNESIUM 2.4 mg/dL (1.8-2.4); POTASSIUM 3.9 mmol/L (3.5-5.1)
[2017-06-08 07:30] VITALS: BP 133/51
[2017-06-08 19:50] VITALS: BP 114/66
[2017-06-09 08:10] VITALS: BP 124/70
[2017-06-09 20:00] VITALS: BP 138/53
[2017-06-10 07:25] LABS: ABSOLUTE NEUTROPHILS 8.3 thou/uL (1.4-8.2); BASOPHILS 0.8 % (0.0-2.0); EOSINOPHILS 3.3 % (0.0-3.0); HEMATOCRIT 34.2 % (42.0-52.0); HEMOGLOBIN 11.6 gm/dL (14.0-18.0); MCH 32.2 pg (26.0-34.0); MCHC 33.9 g/dL (28.0-37.0); MCV 94.9 fL (80.0-100.0); MONOCYTES 9.5 % (1.0-8.0); PLATELET COUNT 382 thou/uL (150-400); POLYS 74.4 % (36.0-66.0); RDW 13.6 % (10.5-14.5); WBC 11.2 thou/uL (4.0-11.0)
[2017-06-10 07:39] LABS: CALCIUM 8.4 mg/dL (8.5-10.1); CREATININE 1.3 mg/dL (0.7-1.3); POTASSIUM 3.9 mmol/L (3.5-5.1)
[2017-06-10 08:45] VITALS: BP 124/60
[2017-06-10 20:00] VITALS: BP 142/60
[2017-06-11 07:38] VITALS: BP 116/56
[2017-06-11 19:35] VITALS: BP 106/55
[2017-06-12 07:52] VITALS: BP 122/55
[2017-06-12 20:00] VITALS: BP 118/47
[2017-06-13 08:25] VITALS: BP 116/42
[2017-06-13 19:18] VITALS: BP 117/68
[2017-06-14 04:33] LABS: ABSOLUTE NEUTROPHILS 7.5 thou/uL (1.4-8.2); BASOPHILS 0.9 % (0.0-2.0); EOSINOPHILS 2.3 % (0.0-3.0); HEMATOCRIT 32.3 % (42.0-52.0); HEMOGLOBIN 11.1 gm/dL (14.0-18.0); LYMPHOCYTES 14.9 % (24.0-44.0); MCH 32.2 pg (26.0-34.0); MCHC 34.3 g/dL (28.0-37.0); MONOCYTES 9.6 % (1.0-8.0); PLATELET COUNT 320 thou/uL (150-400); POLYS 72.3 % (36.0-66.0); RBC 3.43 mil/uL (4.50-6.00); RDW 13.4 % (10.5-14.5); WBC 10.4 thou/uL (4.0-11.0)
[2017-06-14 04:39] LABS: CALCIUM 8.2 mg/dL (8.5-10.1); CREATININE 1.3 mg/dL (0.7-1.3); POTASSIUM 4.1 mmol/L (3.5-5.1)
[2017-06-14 08:00] VITALS: BP 135/72
[2017-06-14 20:00] VITALS: BP 121/51
[2017-06-15 07:50] VITALS: BP 110/57
[2017-06-15 20:00] VITALS: BP 152/72
[2017-06-16 07:30] VITALS: BP 118/59
[2017-06-16 20:00] VITALS: BP 140/48
[2017-06-17 05:53] LABS: HEMATOCRIT 32.2 % (42.0-52.0); HEMOGLOBIN 10.9 gm/dL (14.0-18.0); LYMPHOCYTES 17.2 % (24.0-44.0); MCH 31.6 pg (26.0-34.0); MCHC 33.9 g/dL (28.0-37.0); MCV 93.3 fL (80.0-100.0); MONOCYTES 11.2 % (1.0-8.0); PLATELET COUNT 291 thou/uL (150-400); POLYS 66.6 % (36.0-66.0); RBC 3.45 mil/uL (4.50-6.00)
[2017-06-17 06:10] LABS: ALBUMIN 2.6 g/dL (3.4-5.0); CALCIUM 8.3 mg/dL (8.5-10.1); CREATININE 1.3 mg/dL (0.7-1.3); MAGNESIUM 1.9 mg/dL (1.8-2.4); PHOSPHORUS 4.1 mg/dL (2.5-4.9); POTASSIUM 3.6 mmol/L (3.5-5.1)
[2017-06-17 09:38] VITALS: BP 104/46
[2017-06-17 11:13] VITALS: BP 104/46
[2017-06-17 20:00] VITALS: BP 140/63
[2017-06-18] VITALS (7 sets, daily range): BP systolic 104–136; BP diastolic 46–65
[2017-06-18] MEDS ORDERED: MUCINEX600 MG PO (09:18)
[2017-06-18] MEDS ORDERED: SENNA-TIME S T1 EACH PO (09:18)
[2017-06-18] MEDS ORDERED: MELATONIN5 M1 PO (09:18)
[2017-06-18] MEDS ORDERED: PEPCID20 MG PO (09:18)
[2017-06-18] MEDS ORDERED: NYAMYC15 GM TOP (09:18)
[2017-06-18] MEDS ORDERED: VOLTAREN GEL 1100 G2 TOP (09:18)
[2017-06-18] MEDS ORDERED: LASIX 20 MG TAB20 MG PO (09:18)
[2017-06-18] MEDS ORDERED: VENTOLIN HFA 1818 GM INH (09:18)
[2017-06-18] MEDS ORDERED: ACIDOPHILUS1 EAC4 PO (09:18)
[2017-06-18] MEDS ORDERED: MIRALAX17 GM PO (09:18)
[2017-06-18] MEDS ORDERED: TYLENOL EXTRA500 MG PO (09:18)
[2017-08-09] MEDS ORDERED: DEMADEX20 MG PO (14:24)
[2017-08-09] MEDS ORDERED: IMIPRAMINE HCL25 MG PO (14:29)
[2017-08-09] MEDS ORDERED: K-DUR 20 MEQ T20 MEQ PO (14:29)
[2017-08-09] MEDS ORDERED: MYRBETRIQ50 MG PO (14:30)
== END 2017-06-18 13:59 | disposition home or self-care (01) | DRG 70 ==
LOC: ENTRNSPT 06-18 13:37 → EDTRNSPTSTS 06-18 13:38
PROVIDERS: Hospitalist; Nurse Practitioner; Physical Medicine & Rehabilitation
DX: G93.41 Metabolic encephalopathy (principal); J18.9 Pneumonia, unspecified organism; M48.54XA Collapsed vertebra, not elsewhere classified, thoracic region, initial encounter for fracture; E87.1 Hypo-osmolality and hyponatremia; K57.92 Diverticulitis of intestine, part unspecified, without perforation or abscess without bleeding; J98.11 Atelectasis; N17.9 Acute kidney failure, unspecified; R41.0 Disorientation, unspecified; N40.0 Benign prostatic hyperplasia without lower urinary tract symptoms; I10 Essential (primary) hypertension; E78.5 Hyperlipidemia, unspecified; I25.10 Atherosclerotic heart disease of native coronary artery without angina pectoris; I35.0 Nonrheumatic aortic (valve) stenosis; R53.81 Other malaise; R33.9 Retention of urine, unspecified; B96.5 Pseudomonas (aeruginosa) (mallei) (pseudomallei) as the cause of diseases classified elsewhere; K59.00 Constipation, unspecified; R09.02 Hypoxemia; R60.9 Edema, unspecified; N30.90 Cystitis, unspecified without hematuria; Z87.891 Personal history of nicotine dependence; Z88.0 Allergy status to penicillin; Z95.5 Presence of coronary angioplasty implant and graft; R41.9 Unspecified symptoms and signs involving cognitive functions and awareness; F41.9 Anxiety disorder, unspecified; I48.0 Paroxysmal atrial fibrillation; E78.00 Pure hypercholesterolemia, unspecified; I71.4 Abdominal aortic aneurysm, without rupture; J44.9 Chronic obstructive pulmonary disease, unspecified; Z79.82 Long term (current) use of aspirin; Z79.899 Other long term (current) drug therapy; G47.00 Insomnia, unspecified; G47.33 Obstructive sleep apnea (adult) (pediatric)
CPT/HCPCS: 10112

== ENCOUNTER → 2017-06-25 | Outpatient (CLI) | payer OTHER, MEDICARE ==
[~2017-06-25] MED LIST changes: +ACIDOPHILUS1 EAC4 PO; +DEMADEX20 MG PO; +K-DUR 20 MEQ T20 MEQ PO; +MELATONIN5 M1 PO; +MIRALAX17 GM PO; +MYRBETRIQ50 MG PO; +NYAMYC15 GM TOP; +PEPCID20 MG PO; +VENTOLIN HFA 1818 GM INH; +VOLTAREN GEL 1100 G2 TOP
== END ==
LOC: MRI 08:01
DX: M51.36 Other intervertebral disc degeneration, lumbar region (principal); M48.54XA Collapsed vertebra, not elsewhere classified, thoracic region, initial encounter for fracture

== ENCOUNTER → 2017-07-06 | Outpatient (CLI) | payer OTHER, MEDICARE ==
[~2017-07-06] MED LIST changes: -DEMADEX20 MG PO; -K-DUR 20 MEQ T20 MEQ PO; -MYRBETRIQ50 MG PO
== END ==
LOC: MRI 06:57
DX: M51.24 Other intervertebral disc displacement, thoracic region (principal); M47.894 Other spondylosis, thoracic region; M47.896 Other spondylosis, lumbar region

== ENCOUNTER → 2017-08-09 | Outpatient (CLI) | payer OTHER, MEDICARE ==
[~2017-08-09] VITALS: Ht 182.9 cm; Wt 107.0 kg
[~2017-08-09] MED LIST changes: +DEMADEX20 MG PO; +K-DUR 20 MEQ T20 MEQ PO; +MYRBETRIQ50 MG PO
--- NOTE | ~2017-08-09 | HPC ---
[facility] [place] [address] PAIN MANAGEMENT CONSULTATION Name: BHARATHI MOON Room #: REG [facility].#: [id number] Admission: 08/09/17 Attend Phys: Chacorta Hawley MD Discharge: Date of : 32 Report #: [id number] THIS REPORT FOR: //name// CC: Nir Hawley DATE OF SERVICE: 08/09/2017 CHIEF COMPLAINT: Back pain. HISTORY OF PRESENT ILLNESS: The patient is a pleasant 87-year-old who has suffered 2 compression fractures within the last several months. He was treated with kyphoplasty for above. The fractures are at T12 and T11. He has developed an increasing kyphosis and has pain in his low back without radiation. He has suffered over the years with some chronic back pain, but lately the pain has been much more severe. A 5/10 when he is sitting or less; however, when he walks, he reveals increasing pain, not in the area of his fractures, but across the lumbosacral segment. He has some pain with movement. Twisting and turning exacerbates pain across the lumbosacral segment. He describes it as continuous, at its worst it can be a 9/10. MEDICATIONS: Amiodarone, finasteride, torsemide, amlodipine, probiotic, Senokot, Xarelto, calcium, Myrbetriq, imipramine, doxazosin, atorvastatin, Singulair, , Mucinex. PAST MEDICAL HISTORY: Significant for hypertension, previous atrial fibrillation, intermittent sleep apnea, benign prostatic hypertrophy, coronary artery disease, arteriosclerotic heart disease and hyperlipidemia. ALLERGIES: PENICILLIN. REVIEW OF SYSTEMS: Weight gain, weakness, shortness of breath, dyspnea on exertion. Cardiac issues, orthopnea, frequent urination, nocturia, change in force and stream, numbness, tingling in the back radiating into the legs at times some memory loss and occasional nervousness. PHYSICAL EXAMINATION: GENERAL: The patient is a pleasant 87-year-old gentleman. VITAL SIGNS: His blood pressure is 145/73, heart rate 74. He is 6 feet tall, 236 pounds with a BMI of 32.0. HEENT: Normal. NECK: Supple. CHEST: Clear. CARDIAC: Rhythm is irregular. ABDOMEN: Reveals some present bowel sounds. Examination of the spine reveals [facility] [address] [place] [address] PAIN MANAGEMENT CONSULTATION Name: BHARATHI MOON [id number] Admission: 08/09/17 Attend Phys: Chacorta Hawley MD Discharge: Date of : 32 Report #: [id number] normal alignment in the AP with some upper thoracic kyphosis noted in the lateral view. MUSCULOSKELETAL: Lower extremities reveal heaviness. He is able to independently stand, but needs to use his arms aggressively to push up from a chair. Once standing he has pain across his lumbosacral segment, which is exacerbated by all movement. The pain is well below the area of his compression fractures. No tenderness over the sacroiliac joints. Straight leg raising is performed, negative. X-rays of the lumbar spine dated 07/06/2017 show no acute subacute lumbar compression fracture identified in the lumbar region. There is no focal disk herniation or nerve root compression. No evidence of significant spinal stenosis. There is significant broad-based bulging; however, throughout L3-L4 and L4-L5. There is marked degenerative change of the facet joints, mostly at L5-S1. There is a retrolisthesis of L1 on L2. IMPRESSION: 1. Low back pain with spondylosis, radicular symptoms are mild. 2. Chronic compression fractures T12 with an acute finding also noted in June. This was treated by osteoplasty. RECOMMENDATION: I talked about injection therapy. Radiofrequency ablation also. I would prefer to initiate injection therapy with an epidural injection to see if he is a good responder. Good response is a meaningful improvement in pain and would have a duration of response for up to 3 months. The treatment of lumbar spondylosis throughout the lumbosacral segment would be more involved involving up to 4 additional visits including diagnostic injections of the medial branch nerves, L3-L4 and L5 dorsal ramus to denervate the lower 2 lumbar segments and then if successful on 2 occasions he would need to come back on 2 separate occasions for radiofrequency ablation even then this treatment is not permanent. All this certainly would bring in lots of visits to the clinic. I would find this to be less palatable approach and would only pursue it if he were not aided by an epidural injection first. Medication management was briefly discussed. He has no interest in medications that might promote constipation. He cannot be on an anti-inflammatory drug and unfortunately due to his Xarelto unless we chose one such as Celebrex, which has a low interference with bleeding. For now our approach will be to perform an epidural injection at next visit and evaluate response. Procedure was explained in detail including risks and [facility] [address] [place] [address] PAIN MANAGEMENT CONSULTATION Name: BHARATHI MOON [facility] [id number] Admission: 08/09/17 Attend Phys: Chacorta Hawley MD Discharge: Date of : 32 Report #: [id number] benefits. He will remain off his Xarelto until and will see him first thing in the morning for the shot. By: 1730 0033 Chacorta Hawley MD /nt
[2017-08-09 14:49] VITALS: BP 145/73
== END ==
LOC: PAIN 08-08 17:58
DX: M47.26 Other spondylosis with radiculopathy, lumbar region (principal); S22.080A Wedge compression fracture of T11-T12 vertebra, initial encounter for closed fracture; Z88.0 Allergy status to penicillin; X58.XXXA Exposure to other specified factors, initial encounter; Y93.89 Activity, other specified; Y92.89 Other specified places as the place of occurrence of the external cause; Y99.8 Other external cause status

== ENCOUNTER → 2019-09-01 | Outpatient (CLI) | payer OTHER, MEDICARE | LOC: SJCVCIMAG 08:31 | DX: I65.23 Occlusion and stenosis of bilateral carotid arteries (principal); R94.31 Abnormal electrocardiogram [ECG] [EKG]; I25.10 Atherosclerotic heart disease of native coronary artery without angina pectoris; I73.9 Peripheral vascular disease, unspecified; I48.91 Unspecified atrial fibrillation; I71.4 Abdominal aortic aneurysm, without rupture; D68.59 Other primary thrombophilia; E78.00 Pure hypercholesterolemia, unspecified; I10 Essential (primary) hypertension; Z79.899 Other long term (current) drug therapy; Z87.891 Personal history of nicotine dependence ==

== ENCOUNTER → 2020-05-03 | Outpatient (CLI) | payer OTHER, MEDICARE | LOC: SJCVC 13:13 | PROVIDERS: ATTEND Internal Medicine Cardiovascular Disease | DX: R94.31 Abnormal electrocardiogram [ECG] [EKG] (principal); I48.0 Paroxysmal atrial fibrillation; I25.10 Atherosclerotic heart disease of native coronary artery without angina pectoris; I10 Essential (primary) hypertension; E78.00 Pure hypercholesterolemia, unspecified; I65.23 Occlusion and stenosis of bilateral carotid arteries; I77.810 Thoracic aortic ectasia; I50.9 Heart failure, unspecified; G47.33 Obstructive sleep apnea (adult) (pediatric); M19.90 Unspecified osteoarthritis, unspecified site; Z79.01 Long term (current) use of anticoagulants; Z88.0 Allergy status to penicillin; Z88.1 Allergy status to other antibiotic agents; Z79.899 Other long term (current) drug therapy; Z87.891 Personal history of nicotine dependence; Z72.89 Other problems related to lifestyle ==

== ENCOUNTER → 2020-12-17 | Outpatient (CLI) | payer OTHER, MEDICARE | LOC: SJCVCIMAG 11:43 | PROVIDERS: ATTEND Internal Medicine Cardiovascular Disease | DX: R94.31 Abnormal electrocardiogram [ECG] [EKG] (principal); I65.23 Occlusion and stenosis of bilateral carotid arteries; I48.91 Unspecified atrial fibrillation; I25.10 Atherosclerotic heart disease of native coronary artery without angina pectoris; I10 Essential (primary) hypertension; E78.00 Pure hypercholesterolemia, unspecified; I35.9 Nonrheumatic aortic valve disorder, unspecified; I71.4 Abdominal aortic aneurysm, without rupture; G47.33 Obstructive sleep apnea (adult) (pediatric); I48.0 Paroxysmal atrial fibrillation; Z88.0 Allergy status to penicillin; Z88.8 Allergy status to other drugs, medicaments and biological substances; Z79.01 Long term (current) use of anticoagulants; Z79.899 Other long term (current) drug therapy; Z72.89 Other problems related to lifestyle; Z87.891 Personal history of nicotine dependence ==